=== PATIENT | female | born 1975 | race Hispanic/Latino ===

== ENCOUNTER 2019-06-27 08:21 | Day surgery (SDC) | payer BC ==
[2019-06-21 11:16] VITALS: BP 99/63
[2019-06-21 11:21] LABS: BASOPHILS % (AUTO) 0.6 % (0.0-5.0); EOSINOPHILS % (AUTO) 0.8 % (0.0-8.0); HEMATOCRIT 41.9 % (36-48); LYMPHOCYTES % (AUTO) 25.3 % (21.0-51.0); MEAN CORPUSCULAR HEMOGLOBIN 28.7 pg (27.0-33.0); MEAN CORPUSCULAR HGB CONC 32.7 g/dL (32.0-36.0); MEAN CORPUSCULAR VOLUME 87.7 fL (79-99); MONOCYTES % (AUTO) 5.4 % (3.0-13.0); NEUTROPHILS % (AUTO) 67.6 % (40.0-77.0); PLATELET COUNT (AUTO) 237 K/uL (130-400); RED BLOOD CELL COUNT(AUTO) 4.78 MIL/uL (4.00-5.50); RED CELL DISTRIBUTION WIDTH 12.4 % (11.0-15.5)
[2019-06-21 11:24] LABS: CREATININE 0.7 mg/dL (0.5-1.5); POTASSIUM 3.8 mmol/L (3.5-5.1)
[2019-06-27] VITALS (17 sets, daily range): BP systolic 92–143; BP diastolic 42–73
[~2019-06-27] VITALS: Ht 162.6 cm; Wt 69.4 kg
[2019-06-27] MEDS ORDERED: IBUP-2077 PO (08:44)
[2019-06-27] MEDS ORDERED: LACTATED RINGERS 1000ML 1,000 ML IV ONE (08:47)
[2019-06-27] MEDS: CEFAZOLIN SODIUM 1 GM VIAL ONE ×2 (08:55→10:15)
[2019-06-27] MEDS ORDERED: SUCCINYLCHOLINE 200MG/10ML SYR ONE (09:16)
[2019-06-27] MEDS ORDERED: LIDOCAINE PF 2% 5ML ABBOJECT ONE ×2 (09:16→09:17)
[2019-06-27] MEDS ORDERED: DEXAMETHASONE SOD PHOSPHATE 10MG/ML 1ML VIAL ONE (09:16)
[2019-06-27] MEDS ORDERED: ROCURONIUM 10MG/1ML SYR 10 MG/ML ML ONE (09:17)
[2019-06-27] MEDS ORDERED: NEOSTIGMINE 5MG/5ML SYR IV ONE (09:17)
[2019-06-27] MEDS ORDERED: FENTANYL CITRATE PF 50 MCG/1 ML 2ML VIAL ONE (09:17)
[2019-06-27] MEDS ORDERED: PROPOFOL 10 MG/ML 20ML VIAL IV ONE (09:17)
[2019-06-27] MEDS ORDERED: MIDAZOLAM HCL 1 MG/ML 2ML VIAL ONE (09:17)
[2019-06-27] MEDS ORDERED: ONDANSETRON HCL 4 MG/2 ML VIAL ONE (09:17)
[2019-06-27] MEDS ORDERED: GLYCOPYRROLATE 1 MG/5 ML SYRINGE ONE (09:17)
--- NOTE | 2019-06-27 13:45 | NUR ---
PT. LEFT VIA WHEELCHAIR PVT CAR, WITH D/C INSTRUCTIONS, V/S STABLE NO COMPLICATIONS UPON D/C, DRESSING DRY AND INACT
== END 2019-06-27 13:45 | disposition home or self-care (01) ==
LOC: DAH 08:21
PROVIDERS: ATTEND Orthopaedic Surgery
DX: M75.01 Adhesive capsulitis of right shoulder (principal); M25.511 Pain in right shoulder; E11.9 Type 2 diabetes mellitus without complications; Z79.899 Other long term (current) drug therapy
CPT/HCPCS: 29825; 29826; 36415; 80048; 85025; A4213; A4215; A4221; A4222; A4223; A4450; A4565; A4600; A4649 ×4; A4663; A4930 ×2; A5120; A6207; A6260; J0330; J0690; J1100; J2001 ×2; J2250; J2405; J2704; J2710; J3010; J3490; J7120 ×2